=== PATIENT | male | born 1945 | race Caucasian/White ===

== ENCOUNTER 2022-05-08 06:38 | Inpatient (IN) ==
--- NOTE | 2022-04-24 11:18 | Anesthesiology Consultation ---
Date of Service April 24, 2022 Assessment & Plan (1) Encounter for pre-operative examination: - awaiting PCP pre-op evaluation, [facility] 04/25/22. Optimization note completed regarding Cr increase to 1.8. - s/p cervical spine fusion 2012 - COVID screening: Per injury/safety hazard assessment on 04/24/2022: Travel screen negative, no known COVID-19 positive contacts or current COVID-19 related symptoms in past 2 weeks. To surgeon's discretion if preop COVID testing is needed. Chart Review Chart Review: Pending: Refer to Additional Notes / Consult section and Patient NOT seen in Pre Admission Testing History Surgery Operation Date: 04/30/22 10:25 Proposed Procedures p L3-L4, L4-L5 Decompression and Fusion, Spinal Cord Monitroing - Philippe Ramirez DO Height/Weight Height: 5 ft 11 in Weight: 81.647 kg Allergies Allergy/AdvReac Type Severity Reaction Status Date / Time iodine Allergy Unknown unknown, Verified 04/24/22 11:16 listed in [facility] records shrimp AdvReac Unknown VOMIT, Verified 04/24/22 10:21 DIARRHEA Medications Home Medications Medication Instructions Recorded Confirmed Last Taken Bee Caps 1 cap PO QAM 04/24/22 04/24/22 Unknown Natures Cure Joint Renew 1 tab PO Q2D 04/24/22 04/24/22 Unknown amlodipine 5 mg tablet 5 mg PO QAM 04/24/22 04/24/22 Unknown multivitamin 1 cap PO QAM 04/24/22 04/24/22 Unknown Past Medical History Medical History (Updated 04/24/22 @ 11:17 by Riya Rizvi PA-C) History of colon polyps 10 YR AGO/CLEAR SINCE History of DVT (deep vein thrombosis) History of pulmonary embolism 2014 - UNKNOWN ETIOLOGY/NO RE-OCCURENCE [place] (hard of hearing) HTN (hypertension) Kidney disease FOLLOWS DR PAULINE VENTURA, stage 3a, Cr remaining around 1.7 per records Spinal stenosis Past Family History Family History Father Family history of diverticulitis of colon Other Family history of prostate cancer in father Past Surgical History Surgical History History of carpal tunnel surgery of left wrist History of colonoscopy History of fusion of cervical spine 2013 - FULL ROM Social History Smoking Status: Never smoker Do You Dip or Chew Tobacco: No Hx Alcohol Use: Yes (SOCIAL) Alcohol type: wine and hard liquor alcohol intake frequency: other Alcohol Intake Frequency Comment: SOCIAL DRINK 1 OR 2 X PER WEEK OR MONTH Hx Substance Use: No substance use type: does not use Lab Results Anesthesia Preop Results Results Anesthesia Widget: WBC 5.96 K/ul (4.8-10.8) 04/22/22 Hgb 14.5 g/dl (14.0-18.0) 04/22/22 Hct 43.4 % (40.1-51.0) 04/22/22 Plt 239 K/uL (130-400) 04/22/22 Na 141 mmol/L (136-145) 04/22/22 K 4.6 mmol/L (3.5-5.1) 04/22/22 Cl 109 mmol/L (98-107) H 04/22/22 CO2 26 mmol/L (21-32) 04/22/22 BUN 28 mg/dl (6-23) H 04/22/22 Creat 1.85 mg/dl (0.6-1.4) H 04/22/22 Glucose Level 95 mg/dl (70-99(Fasting)) 04/22/22 PT 11.6 Seconds (9.0-12.0) 04/22/22 PTT 30.1 Seconds (21.0-31.0) 04/22/22 INR 1.1 (0.9-1.1) 04/22/22 Urine Color Yellow 04/22/22 Urine Appearance Clear (Clear) 04/22/22 Urine pH 5.5 (4.5-7.5) 04/22/22 Urine Specific [place] 1.020 (1.000-1.030) 04/22/22 Urine Protein Negative (Negative) 04/22/22 Urine Glucose (UA) Negative (Negative) 04/22/22 Urine Ketones Negative (Negative) 04/22/22 Urine Blood Negative (Negative) 04/22/22 Urine Nitrite Negative (Negative) 04/22/22 Urine Bilirubin Negative (Negative) 04/22/22 Urine Urobilinogen Negative (Negative) 04/22/22 Urine Leukocyte Esterase Negative (Negative) 04/22/22 Blood Type A Positive 04/22/22 Antibody Screen NEGATIVE 04/22/22 Testing Electrocardiogram Date: 04/22/22 NSR, rate 79 bpm Chest X-Ray Date: 04/22/22 No pneumothorax. No pleural effusions. The lungs are clear. Heart is normal in size. Cervical spinal fusion hardware is noted. The lungs are mildly hyperexpanded. IMPRESSION: No acute process.
[~2022-05-08 06:38] MED LIST: ACETAMINOPHEN 500 MG TAB PO SCH; GABAPENTIN 300 MG CAP PO SCH; LR 15ML/HR IV SCH; ceFAZolin 2000MG 2,000 MG/15 ML SYR IV SCH
[2022-05-08] MEDS ORDERED: SUGAMMADEX SODIUM 200 MG/2 ML VIAL IV ONE (07:34)
--- NOTE | 2022-05-08 07:51 | History & Physical Bridge Note ---
Date of Service May 08, 2022 History & Physical Bridge Note I have examined the patient, reviewed the History & Physical and in the interval since the performance of the History & Physical I have noted the following changes of clinical significance: no changes noted
--- NOTE | 2022-05-08 07:52 | History & Physical Report ---
Date of Service May 08, 2022 Assessment & Plan (1) Spinal stenosis: Plan: L3-L4, L4-5 decompression and fusion History of Present Illness Chief Complaint: Back and leg pain Primary Care Provider: Tab Machado MD This is a 68-year-old male presents with chronic persistent back and leg pain. Failed extensive course of nonoperative care is here for surgical invention. Allergies Allergy/AdvReac Type Severity Reaction Status Date / Time iodine Allergy Unknown unknown, Verified 05/08/22 07:00 listed in [facility] records shrimp AdvReac Unknown VOMIT, Verified 05/08/22 07:00 DIARRHEA Home Medications Medication Instructions Recorded Confirmed Type Bee Caps 1 cap PO QAM 04/24/22 05/08/22 History Natures Cure Joint Renew 1 tab PO Q2D 04/24/22 05/08/22 History amlodipine 5 mg tablet 5 mg PO QAM 04/24/22 05/08/22 History multivitamin 1 cap PO QAM 04/24/22 05/08/22 History Past Med/Surg History Medical History History of colon polyps 10 YR AGO/CLEAR SINCE History of DVT (deep vein thrombosis) History of pulmonary embolism 2014 - UNKNOWN ETIOLOGY/NO RE-OCCURENCE [place] (hard of hearing) HTN (hypertension) Kidney disease FOLLOWS DR PAULINE VENTURA, stage 3a, Cr remaining around 1.7 per records Spinal stenosis Surgical History History of carpal tunnel surgery of left wrist History of colonoscopy History of fusion of cervical spine 2012 - FULL ROM Family History Father Family history of diverticulitis of colon Other Family history of prostate cancer in father Social History Smoking Status: Never smoker Do You Dip or Chew Tobacco: No; Hx Alcohol Use: Yes (SOCIAL) Alcohol type: wine and hard liquor Hx Substance Use: No Preferred Language: Vietnamese Communication Ability: Effective Communication Ability Comment: PT [place], HELPS WITH PHONE 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
[2022-05-08] MEDS ORDERED: BUPIVACAINE/EPINEPHRINE 0.25% 1:200,000 30 ML VIAL ONE (07:53)
[2022-05-08] MEDS ORDERED: ceFAZolin 330 MG/ML 1 GM VIAL ONE (07:53)
[2022-05-08] MEDS ORDERED: HYDROmorphone INJ 2 MG/ML SYR/VIAL ONE (07:56)
[2022-05-08] MEDS ORDERED: MIDAZOLAM HCL 1 MG/ML 2ML VIAL ONE (07:56)
[2022-05-08] MEDS ORDERED: LIDOCAINE 2% MPF LOCAL 5 ML VIAL INFIL ONE (07:57)
[2022-05-08] MEDS ORDERED: DEXAMETHASONE SOD INJ 4 MG/ML VIAL ONE (07:57)
[2022-05-08] MEDS ORDERED: ROCURONIUM BROMIDE 10 MG/ML 5 ML VIAL IV ONE ×4 (07:57→10:21)
[2022-05-08] MEDS ORDERED: ONDANSETRON INJ 2 MG/ML 2 ML VIAL ONE (07:57)
[2022-05-08] MEDS ORDERED: PROPOFOL IV EMULSION 10 MG/ML 20 ML VIAL IV ONE (07:57)
[2022-05-08] MEDS ORDERED: GLYCOPYRROLATE 0.2 MG/ML VIAL ONE (07:57)
[2022-05-08] MEDS ORDERED: SODIUM CHLORIDE 0.9% INJ 10 ML VIAL ONE (07:57)
[2022-05-08] MEDS ORDERED: HYDROmorphone INJ 2 MG/ML SYR/VIAL IV PRN (08:23)
[2022-05-08] MEDS ORDERED: ONDANSETRON INJ 2 MG/ML 2 ML VIAL IV PRN ×2 (08:23→12:36)
[2022-05-08] MEDS ORDERED: ePHEDrine sulfate 50 MG/ML AMP IV PRN (08:23)
[2022-05-08] MEDS ORDERED: ATROPINE SULFATE 0.1 MG/ML 10ML SYR IV PRN (08:23)
[2022-05-08] MEDS ORDERED: fentaNYL citrate 100 MCG/2 ML VIAL IV PRN (08:23)
[2022-05-08] MEDS ORDERED: PROMETHAZINE HCL 6.25 MG in SODIUM CHLORIDE 0.9% 50 ML IV PRN (08:23)
[2022-05-08] MEDS ORDERED: PHENYLEPHRINE 100MCG/ML 5ML SYR ONE (08:37)
[2022-05-08] MEDS ORDERED: PHENYLEPHRINE HCL 10 MG/ML VIAL ONE (10:18)
[2022-05-08] MEDS ORDERED: FLOSEAL HEMOSTATIC MATRIX 10ML TOP ONE (11:00)
--- NOTE | 2022-05-08 11:11 | Operative Report ---
Post Operative Report Pre & Post Diagnosis Operation Date: 04/30/22 09:05 <No data on this case meets the specified criteria> Operation Date: 05/08/22 08:15 Pre-Op Diagnosis: Spinal Stenosis, Lumbar Region with Neurogenic Claudication Post-Op Diagnosis: Spinal Stenosis, Lumbar Region with Neurogenic Claudication I identified the patient and participated in the time-out.: Yes Procedure Operation Date: 04/30/22 09:05 <No data on this case meets the specified criteria> Operation Date: 05/08/22 08:15 Actual Procedures #1 lumbar decompression bilateral medial facetectomies and foraminotomies L2-L3, L3-L4 and L4-5. #2 posterior spinal fusion L3-L4 L4-5. #3 placement posterior instrumentation L3-L5. #4 interbody fusion L3-L4 L4-5. #5 placement of Spira 13 x 26 mm at L3-L4 and 15 x 26 mm at L4-L5. #6 placement locally harvested morselized autograft in the posterior gutters. #7 placement of I factor model V toss interbody space and posterior gutters. Surgeon Philippe Ramirez, DO Reimbursement Rep Alayna Wong Estimated Blood Loss 400 Findings Consistent with Post-Op Diagnosis Specimens None Indications This is a 76-year-old male presents with bulge diagnosis after failed course of nonoperative care is here for the above-mentioned procedure. Description of Procedure Patient was met with identified informed consent obtained. Patient was then taken to the operative suite underwent a patient placed in a prone position the [place] table top Nadir frame. All bony prominences well-padded eyes inspected to ensure no external pressure placed upon them. This point the lumbar spine was prepped and draped in a sterile fashion. Sharp dissection with the assistance of Bovie cautery was performed down to and exposing the lamina and transverse processes of L3-L4-L5. From caudal to cephalad fashion complete laminectomy of L4 L3 impression laminectomy of L2 was performed including bilateral medial facetectomies and foraminotomies addressing severe spinal stenosis. Pedicle screws were then placed in L3-L4-L5 bilaterally with assistance of fluoroscopy and the properly sized nish placed. By way of a transfemoral approach and right complete discectomy of L4-5 was performed endplates curetted to subcortical bleeding bone and a 15 x 26 mm spiral cage with I factor tapped in position. Then proceeded to L3-L4 and again by way of a transforaminal portion right complete discectomy performed endplates curetted to subcortically bone and a 13 x 26 mm spiral cage with I factor tapped in position. The rods were then compressed locked into final position bilaterally. The transverse processes of L3 L4-5 burred to subcortical bleeding bone. I factor model of the test and locally harvested morselized autograft was placed in the posterior gutters. 15 round DELORIS drain inserted. The incision was then closed with 1 Vicryl the fascia 2-0 Vicryl subcutaneously and 4 Monocryl for final skin closure. Steri-Strip sterile dressing placed. Patient waken taken to PACU in stable condition. Please note spinal cord monitoring was utilized at the procedure no changes noted. Lastly Alayna Wong was present at the entire surgery and while the patient positioning complex portions of the surgery and final skin closure. I attest to the content of the Intraoperative Record and any orders documented therein. Any exceptions are noted below.
[2022-05-08] MEDS ORDERED: METOCLOPRAMIDE HCL INJ 5 MG/ML 2 ML VIAL IV PRN (12:36)
[2022-05-08] MEDS ORDERED: traMADol HCL 50 MG TABLET PO PRN (12:36)
[2022-05-08] MEDS ORDERED: diphenhydrAMINE Capsule 25 MG CAP PO PRN (12:36)
[2022-05-08] MEDS ORDERED: ONDANSETRON 4 MG OD TAB PO PRN (12:36)
[2022-05-08] MEDS ORDERED: LORazepam 0.5 MG in SYRINGE 0 ML IV PRN (12:36)
[2022-05-08] MEDS ORDERED: NALOXONE HCL 0.4 MG/1 ML VIAL/CARP IV PRN (12:36)
[2022-05-08] MEDS ORDERED: FAMOTIDINE 20 MG TAB PO PRN (12:36)
[2022-05-08] MEDS ORDERED: ALUMINUM/MAGNESIUM SUSP 30 ML UDC PO PRN (12:36)
[2022-05-08] MEDS ORDERED: PROMETHAZINE HCL 12.5 MG in SODIUM CHLORIDE 0.9% 50 ML IV PRN (12:36)
[2022-05-08] MEDS ORDERED: LORazepam 0.5 MG TAB PO PRN (12:36)
[2022-05-08] MEDS ORDERED: SOD PHOSPHATE/SOD BIPHOSPHATE ENEMA 132 ML BTL PR PRN (12:36)
[2022-05-08] MEDS ORDERED: ACETAMINOPHEN 1,000 MG/100 ML VIAL IV PRN (12:36)
[2022-05-08] MEDS ORDERED: MAGNESIUM HYDROXIDE SUSP 30 ML UDC PO PRN (12:36)
[2022-05-08] MEDS ORDERED: bisacodyL 10 MG SUPP PR PRN (12:36)
[2022-05-08] MEDS ORDERED: HYDROmorphone INJ 0.5 MG/0.5 ML SYR IV PRN (12:36)
[2022-05-08] MEDS ORDERED: hydrOXYzine HCl 25 MG TAB PO PRN (12:36)
[2022-05-08] MEDS ORDERED: HYDROmorphone INJ 1 MG/ML SYRINGE IV PRN (12:36)
[2022-05-08] MEDS ORDERED: oxyCODONE HCL IR 5 MG TAB (IMMEDIATE RELEASE) PO PRN (12:36)
[2022-05-08] MEDS ORDERED: DO NOT ADMINISTER PNEUMOCOCCAL VACCINE PRN (12:36)
[2022-05-08] MEDS ORDERED: DO NOT ADMINISTER FLU VACCINE PRN (12:36)
--- NOTE | 2022-05-08 14:31 | Hospitalist Consultation ---
Date of Consultation May 08, 2022 Assessment & Plan (1) S/P spinal surgery: This is a 76-year-old male with PMH of hypertension, CKD 3, degenerative disc disease of lumbar spine, history of pulmonary embolism who is POD #0 s/p lumbar decompression bilateral medial facetectomies and foraminotomies L2-L3, L3-L4 and L4-5 and posterior spinal fusion L3-L4 L4-[address] Ramirez. S/p lumbar decompression bilateral medial facetectomies and foraminotomies L2- L3, L3-L4 and L4-5 and posterior spinal fusion L3-L4 L4-[address] Ramirez on 05/08/22 Per ortho for pain control, wound care, anticoagulation and activities Monitor H&H (pre-op hgb 14.5, EBL 400ml) Continue incentive spirometry, PT/OT when appropriate (2) CKD (chronic kidney disease), stage III: Baseline Cr ~1.7. Avoid nephrotoxic agents when possible including Toradol. Repeat BMP in AM (3) Hypertension: Normotensive, continue amlodipine (4) History of pulmonary embolism: H/o PE in 2014, completed anticoagulation after 1 year. No recurrent issues since PCP: [place] Dispo: Per orthopedic service Patient seen in collaboration with Dr. Garcia. Please see addendum. Thank you for this consultation. We will follow the patient with you during their hospital stay. You can reach a member of the [facility] Hospitalist Team 29/12 via [employer]. Supervising Physician Co-Signing Physician Notes Care coordinated with Ruthy Vo PA-C. Agree with above note. Patient seen and examined. Please refer to her notes for full details. Vital signs reviewed. Physical exam: General exam: Alert and oriented. Not in acute distress. CVS: S1 and S2 heard, regular rate and rhythm, no murmurs. RS: Clear to auscultation, no wheezing or crackles. ABD: Soft, bowel sounds present, nontender, no distention. 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 Musculoskeletal s/p back surgery Dressing and drain intact EXT: No edema, no erythema. Labs: Reviewed. Assessment and plan: 76M s/p back surgery . Tolerated procedure fine. Resting comfortably. Has some discomfort at surgery site. No chest pain or sob. No anusea or feeling hot or cold. No blurry vision. S/P BAck surgery management as per ortho. HTN on amlodipine will monitor Other diagnosis and plan of care as per Ruthy Vo PA-C. Campos hoff MD. History of Present Illness Reason for Consultation: post op med mgmt Attending Physician: Philippe Ramirez DO History of Present Illness This is a 76-year-old male with PMH of hypertension, CKD 3, degenerative disc disease of lumbar spine, history of pulmonary embolism who is POD #0 s/p lumbar decompression bilateral medial facetectomies and foraminotomies L2-L3, L3-L4 and L4-5 and posterior spinal fusion L3-L4 L4-[address] Ramirez. Feeling well postoperatively. Has some surgical site discomfort but denies jyoti pain. No pain or paresthesias in bilateral lower extremities. No fever, chills, chest pain, shortness of breath, nausea, vomiting, abdominal pain, dysuria, diarrhea or constipation. Follows with Dr. Machado for primary care. Taking amlodipine for history of hypertension and follows with Dr. Graff of nephrology for CKD 3. Remote history of pulmonary embolism in 2014 but was taken off of anticoagulation in 2015 and has no further issues since then. Allergies Allergy/AdvReac Type Severity Reaction Status Date / Time iodine Allergy Unknown unknown, Verified 05/08/22 07:00 listed in [facility] records shrimp AdvReac Unknown VOMIT, Verified 05/08/22 07:00 DIARRHEA Home Medications Medication Instructions Recorded Confirmed Type Bee Caps 1 cap PO QAM 04/24/22 05/08/22 History Natures Cure Joint Renew 1 tab PO Q2D 04/24/22 05/08/22 History amlodipine 5 mg tablet 5 mg PO QAM 04/24/22 05/08/22 History multivitamin 1 cap PO QAM 04/24/22 05/08/22 History Patient History Medical History (Updated 05/08/22 @ 14:25 by Ruthy Vo PA-C) History of adenomatous polyp of colon "tubular adenoma 2008" History of colon polyps 10 YR AGO/CLEAR SINCE History of DVT (deep vein thrombosis) History of pulmonary embolism 2014 - UNKNOWN ETIOLOGY/NO RE-OCCURENCE History of pulmonary embolism [place] (hard of hearing) HTN (hypertension) Kidney disease FOLLOWS DR PAULINE GRAFF, stage 3a, Cr remaining around 1.7 per records Spinal stenosis Surgical History (Updated 05/08/22 @ 14:25 by Ruthy Vo PA-C) History of carpal tunnel surgery of left wrist History of colonoscopy History of fusion of cervical spine 2013 - FULL ROM Family History Father Family history of diverticulitis of colon Other Family history of prostate cancer in father Social History (Updated 05/08/22 @ 14:24 by Ruthy Vo PA-C) Smoking Status: Former smoker Smoking End Date: 1998; Do You Dip or Chew Tobacco: No; Hx Alcohol Use: Yes (SOCIAL) Alcohol type: wine and hard liquor Hx Substance Use: No Preferred Language: Malay Communication Ability: Effective Communication Ability Comment: PT [place], HELPS WITH PHONE INTERVIEW Facilities Technician Required: No Beliefs That Will Affect Care: None Current Living Situation: Spouse Other Information That Helps Us Care for You: No Feels Safe at Home: Yes Assistive Devices: Denture - Upper, Denture - Lower, Glasses and Hearing Aid - Bilateral Review of Systems Review of Systems: At least ten systems reviewed and negative except as noted in the HPI. Physical Exam Physical Exam: Gen: WD/WN, NAD, lying in bed, A&Ox3 HEENT: Normocephalic, atraumatic, conjunctivae moist, sclerae anicteric, mucous membranes moist Lung: Clear to Auscultation bilaterally, no wheezes/rales/rhonchi Heart: Regular rate, regular rhythm, no murmurs, rubs, or gallops Abdomen: Soft, NT, ND +BS x 4 Extremities: +Spinal dressing c/d/i. DELORIS drain visualized. Strength intact BLE. No edema Skin: Warm, no rash Results & Data Results & Data ([facility]) Vital Signs (Past 12 Hours) Vital Signs Temp Pulse Pulse Resp BP Pulse Ox O2 Del Method 05/08/22 14:00 36.5 C 76 16 133/75 96 Room Air 05/08/22 13:15 88 16 118/70 96 Room Air 05/08/22 12:50 36.5 C 80 12 122/76 97 Room Air 05/08/22 12:35 88 12 130/79 97 Room Air 05/08/22 12:20 81 12 135/84 96 Room Air 05/08/22 12:10 81 20 132/81 98 Room Air 05/08/22 12:00 76 12 123/58 L 96 Room Air 05/08/22 11:50 84 12 128/76 98 Room Air 05/08/22 11:40 78 20 115/75 99 Oxymask 05/08/22 11:30 76 16 114/64 99 Oxymask 05/08/22 11:24 36.5 C 80 12 111/67 99 Oxymask 05/08/22 07:02 36.6 C 77 18 160/86 H 97 Room Air O2 Flow Rate 05/08/22 14:00 05/08/22 13:15 05/08/22 12:50 05/08/22 12:35 05/08/22 12:20 05/08/22 12:10 05/08/22 12:00 05/08/22 11:50 05/08/22 11:40 3 05/08/22 11:30 6 05/08/22 11:24 6 05/08/22 07:02
--- NOTE | 2022-05-08 14:38 | Fluoroscopy Report ---
FL lumbar spine 2-3V CLINICAL HISTORY: L3-L4,L4-L5 DECOMP/FUSION COMPARISON STUDY: CT of the abdomen and pelvis October 14, 2014. FLUOROSCOPY TIME: 25 seconds. FLUOROSCOPIC IMAGES: 2 FINDINGS: Fluoroscopy was provided during L3-L4 and L4-L5 discectomies with interbody spacer placemen t. Posterior decompression is noted with bilateral pedicle screws at the L3, L4 and L5 levels. There are interconnecting rods. Surgeon was aware of the linear radiodensities within the operative bed. IMPRESSION: Fluoroscopy provided during L3-L5 discectomies, posterior decompression and bilateral pe dicle screw fusion. ACT 112: Negative or not required by law. Electronically signed by: Jaron Rivera M.D. 05/08/2022 2:37 PM
--- NOTE | 2022-05-08 15:08 | Anesthesiology Progress Note ---
Date of Service May 08, 2022 Anesthesia Post Procedure Vital Signs Vital Signs: Temp Pulse Pulse Resp BP Pulse Ox O2 Del Method 05/08/22 14:29 36.6 C 74 16 119/73 98 Room Air 05/08/22 14:00 36.5 C 76 16 133/75 96 Room Air 05/08/22 13:15 88 16 118/70 96 Room Air 05/08/22 12:50 36.5 C 80 12 122/76 97 Room Air 05/08/22 12:35 88 12 130/79 97 Room Air 05/08/22 12:20 81 12 135/84 96 Room Air 05/08/22 12:10 81 20 132/81 98 Room Air 05/08/22 12:00 76 12 123/58 L 96 Room Air 05/08/22 11:50 84 12 128/76 98 Room Air 05/08/22 11:40 78 20 115/75 99 Oxymask 05/08/22 11:30 76 16 114/64 99 Oxymask 05/08/22 11:24 36.5 C 80 12 111/67 99 Oxymask 05/08/22 07:02 36.6 C 77 18 160/86 H 97 Room Air O2 Flow Rate 05/08/22 14:29 05/08/22 14:00 05/08/22 13:15 05/08/22 12:50 05/08/22 12:35 05/08/22 12:20 05/08/22 12:10 05/08/22 12:00 05/08/22 11:50 05/08/22 11:40 3 05/08/22 11:30 6 05/08/22 11:24 6 05/08/22 07:02 Pain Intensity Right Back: Pain Intensity: 0 Transfer of Care Handoff Completed per policy Notes Mental Status: alert / awake / arousable Patient Amnestic to Procedure: Yes Nausea / Vomiting: adequately controlled Pain: adequately controlled Airway Patency, RR, SpO2: stable & adequate BP & HR: stable & adequate Hydration State: stable & adequate Anesthetic Complications: no major complications apparent
[2022-05-08] MEDS: ACETAMINOPHEN 500 MG TAB PO PRN (15:57)
[2022-05-08] MEDS: ceFAZolin 2000MG 2,000 MG/15 ML SYR IV SCH (19:11)
[2022-05-08] MEDS: LACTATED RINGER'S 1,000 ML IV SCH ×2 (19:15→21:20)
[2022-05-08] MEDS: DOCUSATE SODIUM/SENNA 50/8.6MG TAB PO SCH (21:22)
[2022-05-09] MEDS: ceFAZolin 2000MG 2,000 MG/15 ML SYR IV SCH (01:21)
[2022-05-09] MEDS: ACETAMINOPHEN 500 MG TAB PO PRN ×2 (01:24→08:14)
[2022-05-09] MEDS ORDERED: POLYETHYLENE (MIRALAX) 17 GM PACK ONE (04:32)
[2022-05-09] MEDS: POLYETHYLENE (MIRALAX) 17 GM PACK PO SCH ×2 (04:34→18:36)
[2022-05-09 07:04] LABS: Basophils # (auto) 0.02 K/uL (0-0.2); Basophils % (auto) 0.2 %; Eosinophils # (auto) 0.01 K/uL (0-0.50); Eosinophils % (auto) 0.1 %; Hematocrit (blood only) 33.7 % (40.1-51.0); Hemoglobin 11.7 g/dl (14.0-18.0); Immature Granulocytes # (auto) 0.16 K/uL (0.00-0.02); Immature Granulocytes % (auto) 1.3 %; Lymphocytes # (auto) 1.75 K/uL (1.2-3.4); Mean Corpuscular Hemoglobin 30.5 pg (25.0-34.0); Mean Corpuscular Hgb Conc 34.7 g/dL (32.0-36.0); Mean Platelet Volume 9.8 fL (9.4-12.4); Monocytes # (auto) 1.18 K/uL (0.24-0.82); Monocytes % (auto) 9.4 %; Neutrophils # (auto) 9.38 K/uL (1.4-6.5); Platelet Count 183 K/uL (130-400); RDW Coefficient of Variation 12.2 % (11.5-14.5); Red Blood Count 3.83 M/uL (4.63-6.08)
[2022-05-09 07:22] LABS: Calcium 8.6 mg/dl (8.5-10.1); Creatinine Clr Calc Pharmacy 37.1 ml/min; Est GFR (African American) 42.3 ml/min; Est GFR (Non-African American) 36.5 ml/min; Potassium 4.4 mmol/L (3.5-5.1)
[2022-05-09] MEDS: dexAMETHasone 6 MG in SYRINGE 0 ML IV SCH (08:10)
[2022-05-09] MEDS: amLODIPine BESYLATE 5 MG TAB PO SCH (08:12)
[2022-05-09] MEDS: MULTIVITAMIN TAB PO SCH (08:12)
--- NOTE | 2022-05-09 11:13 | Orthopedic Progress Note ---
Date of Service May 09, 2022 Assessment & Plan (1) Spinal stenosis: Plan: At this time we will continue physical therapy and monitor his DELORIS output hopefully discharge home in the next few days. Admission and Anticipated Discharge Date Admission Date: May 08, 2022 Subjective Back pain is controlled leg symptoms markedly improved Physical Exam Physical Exam: Patient is comfortable was constricted testing. I Results & Data ([facility]) Vital Signs (Past 12 Hours) Vital Signs Temp Pulse Pulse Resp BP BP Pulse Ox 05/09/22 07:19 36.9 C 83 16 117/71 97 05/09/22 04:29 37.0 C 71 18 144/78 H 96 O2 Del Method 05/09/22 07:19 Room Air 05/09/22 04:29 Room Air
--- NOTE | 2022-05-09 11:48 | Hospitalist Progress Note ---
Date of Service May 09, 2022 Assessment & Plan (1) S/P spinal surgery: Plan: This is a 76-year-old male with PMH of hypertension, CKD 3, degenerative disc disease of lumbar spine, history of pulmonary embolism who is POD #1 s/p lumbar decompression bilateral medial facetectomies and foraminotomies L2-L3, L3-L4 and L4-5 and posterior spinal fusion L3-L4 L4-[address] Ramirez. S/p lumbar decompression bilateral medial facetectomies and foraminotomies L2- L3, L3-L4 and L4-5 and posterior spinal fusion L3-L4 L4-[address] Ramirez on 05/08/22 Per ortho for pain control, wound care, anticoagulation and activities Continue incentive spirometry, PT/OT when appropriate Post op blood loss anemia H&H - hgb 11.7 today (pre-op hgb 14.5, EBL 400ml) Post op blood loss + likely dilutional factor. VSS, asymptomatic. Continue to monitor, consider transfusion if hgb <8 (2) CKD (chronic kidney disease), stage III: Plan: Cr 1.75 today at baseline (Cr ~1.7-1.8). Avoid nephrotoxic agents when possible including Toradol. Repeat BMP in AM (3) Hypertension: Plan: Normotensive, continue amlodipine (4) History of pulmonary embolism: Plan: H/o PE in 2014, completed anticoagulation after 1 year. No recurrent issues since PCP: Carter Dispo: Per orthopedic service Thank you for this consultation. We will follow the patient with you during their hospital stay. You can reach a member of the [facility] Hospitalist Team 29/12 via [employer]. Admission and Anticipated Discharge Date Admission Date: May 08, 2022 Supervising Physician Co-Signing Physician Notes Patient seen and evaluated at as a follow-up of medical management bedside for status post spinal surgery. Patient reports improvement in his right radicular symptoms, reports pain under control, reports eating okay, denies other review of symptoms. Acute blood loss anemia, likely postoperative, hemoglobin drop by around three- point. On examination, on room air, NAD, low back with clean dressing without soakage, DELORIS drain with minimal serosanguineous collection noted. Rest of the examination as above. I have seen and examined the patient and have discussed the case with the provider above. I agree with the assessment and plan as stated. Subjective Seen and examined in 303-1. Feeling well today and ambulating in the halls without issue. Some surgical discomfort with transitioning from lying to sitting but otherwise denies pain. Tolerating diet without issue. No nausea or vomiting. No fever, chills, lightheadedness, headache, chest pain, shortness of breath. [place] catheter in place. Passing flatus, no bowel movement yet. Review of Systems Review of Systems: At least ten systems reviewed and negative except as noted in the HPI. Physical Exam Physical Exam: Gen: WD/WN, NAD, lying in bed, A&Ox3 HEENT: Normocephalic, atraumatic, conjunctivae moist, sclerae anicteric, mucous membranes moist Lung: Clear to Auscultation bilaterally, no wheezes/rales/rhonchi Heart: Regular rate, regular rhythm, no murmurs, rubs, or gallops Abdomen: Soft, NT, ND +BS x 4 Extremities: +Spinal dressing c/d/i. DELORIS drain visualized. Strength intact BLE. No edema Skin: Warm, no rash Results & Data Results & Data ([facility]) Vital Signs (Past 12 Hours) Vital Signs Temp Pulse Pulse Resp BP BP Pulse Ox 05/09/22 07:19 36.9 C 83 16 117/71 97 05/09/22 04:29 37.0 C 71 18 144/78 H 96 O2 Del Method 05/09/22 07:19 Room Air 05/09/22 04:29 Room Air Laboratory Results Short CBC 05/09/22 Range/Units 06:36 WBC 12.50 H (4.8-10.8) K/ul Hgb 11.7 L (14.0-18.0) g/dl Hct 33.7 L (40.1-51.0) % Plt Count 183 (130-400) K/uL BMP 05/09/22 06:36 Sodium 136 Potassium 4.4 Chloride 106 Carbon Dioxide 24 BUN 28 H Creatinine 1.75 H Glucose 116 H Calcium 8.6 Diagnostic Findings Lumbar Spine X-Ray 05/08/22 00:00 FL lumbar spine 2-3V CLINICAL HISTORY: L3-L4,L4-L5 DECOMP/FUSION COMPARISON STUDY: CT of the abdomen and pelvis October 14, 2014. FLUOROSCOPY TIME: 25 seconds. FLUOROSCOPIC IMAGES: 2 FINDINGS: Fluoroscopy was provided during L3-L4 and L4-L5 discectomies with interbody spacer placement. Posterior decompression is noted with bilateral pedicle screws at the L3, L4 and L5 levels. There are interconnecting rods. Surgeon was aware of the linear radiodensities within the operative bed. IMPRESSION: Fluoroscopy provided during L3-L5 discectomies, posterior decompression and bilateral pedicle screw fusion. ACT 112: Negative or not required by law. Electronically signed by: Jaron Rivera M.D. 05/08/2022 2:37 PM
[2022-05-09] MEDS: DOCUSATE SODIUM/SENNA 50/8.6MG TAB PO SCH (20:11)
[2022-05-10] MEDS: POLYETHYLENE (MIRALAX) 17 GM PACK PO SCH ×4 (00:22→18:08)
[2022-05-10 06:38] LABS: Hematocrit (blood only) 32.2 % (40.1-51.0); Mean Corpuscular Hemoglobin 29.9 pg (25.0-34.0); Mean Corpuscular Hgb Conc 34.2 g/dL (32.0-36.0); Mean Corpuscular Volume 87.5 fL (80.0-100.0); Mean Platelet Volume 9.9 fL (9.4-12.4); Platelet Count 193 K/uL (130-400); RDW Coefficient of Variation 12.3 % (11.5-14.5); RDW Standard Deviation 39.8 fL (36.4-46.3); Red Blood Count 3.68 M/uL (4.63-6.08); White Blood Count 12.26 K/ul (4.8-10.8)
[2022-05-10 07:28] LABS: BUN Creatinine Ratio 17.8 (10-20); Calcium 8.7 mg/dl (8.5-10.1); Creatinine Clr Calc Pharmacy 36.7 ml/min; Est GFR (African American) 42.3 ml/min; Est GFR (Non-African American) 36.5 ml/min; Potassium 4.3 mmol/L (3.5-5.1)
[2022-05-10] MEDS: MULTIVITAMIN TAB PO SCH (08:06)
[2022-05-10] MEDS: dexAMETHasone 6 MG in SYRINGE 0 ML IV SCH (08:06)
[2022-05-10] MEDS: amLODIPine BESYLATE 5 MG TAB PO SCH (08:06)
--- NOTE | 2022-05-10 10:33 | Orthopedic Progress Note ---
Date of Service May 10, 2022 Assessment & Plan (1) Spinal stenosis: Plan: At this time we will continue physical therapy monitor his progress anticipate discharge home tomorrow. Admission and Anticipated Discharge Date Admission Date: May 08, 2022 Subjective Back pain is controlled leg pain improved Physical Exam Physical Exam: Patient is constricted testing. Peers comfortable. Results & Data ([facility]) Vital Signs (Past 12 Hours) Vital Signs Temp Pulse Resp BP Pulse Ox O2 Del Method 05/10/22 07:36 36.9 C 76 18 136/81 94 Room Air
[2022-05-10] MEDS: ACETAMINOPHEN 500 MG TAB PO PRN ×2 (13:42→23:16)
--- NOTE | 2022-05-10 14:10 | Hospitalist Progress Note ---
Date of Service May 10, 2022 Assessment & Plan (1) S/P spinal surgery: Plan: This is a 76-year-old male with PMH of hypertension, CKD 3, degenerative disc disease of lumbar spine, history of pulmonary embolism who is POD #1 s/p lumbar decompression bilateral medial facetectomies and foraminotomies L2-L3, L3-L4 and L4-5 and posterior spinal fusion L3-L4 L4-[address] Ramirez. S/p lumbar decompression bilateral medial facetectomies and foraminotomies L2- L3, L3-L4 and L4-5 and posterior spinal fusion L3-L4 L4-[address] Ramirez on 05/08/22 Per ortho for pain control, wound care, anticoagulation and activities Continue incentive spirometry, PT/OT when appropriate Post op blood loss anemia H&H - hgb around 11 (pre-op hgb 14.5, EBL 400ml) Post op blood loss + likely dilutional factor. VSS, asymptomatic. Continue to monitor, consider transfusion if hgb <8 (2) CKD (chronic kidney disease), stage III: Plan: Cr 1.74 today at baseline (Cr ~1.7-1.8). Avoid nephrotoxic agents when possible including Toradol. Repeat BMP in AM (3) Hypertension: Plan: Normotensive, continue amlodipine (4) History of pulmonary embolism: Plan: H/o PE in 2014, completed anticoagulation after 1 year. No recurrent issues since PCP: Carter Dispo: Per orthopedic service Thank you for this consultation. We will follow the patient with you during their hospital stay. You can reach a member of the [facility] Hospitalist Team 29/12 via [employer] Admission and Anticipated Discharge Date Admission Date: May 08, 2022 Subjective Patient seen and examined at bedside as a follow-up of medical consult for status post lumbar spine surgery. Patient was sitting up in chair, on room air, NAD, reports eating okay and moving bowels okay, reports pain under control, denies other review of symptoms. Physical Exam Physical Exam: GENERAL: Alert and oriented x3. NAD, on RA. HEENT: No pallor, no icterus. Pupils equal, round and reactive to light. Oral mucosa moist. NECK: No JVD, no neck masses. HEART: S1 and S2 heard. Regular rate and rhythm. No murmur, no gallop. RESPIRATORY SYSTEM: Normal AP diameter. No accessory muscle use. No wheezing, no crackles. ABDOMEN: Soft, bowel sounds present, nontender, no distention. CENTRAL NERVOUS SYSTEM: No facial droop. Speech is clear. Obeys simple commands. Moves extremities. EXTREMITIES: No edema, no erythema seen. Low back with clean dressing Without soakage, DELORIS drain with moderate serosanguineous collection noted. Results & Data Results & Data ([facility]) Vital Signs (Past 12 Hours) Vital Signs Temp Pulse Resp BP Pulse Ox O2 Del Method 05/10/22 07:36 36.9 C 76 18 136/81 94 Room Air
[2022-05-10] MEDS: DOCUSATE SODIUM/SENNA 50/8.6MG TAB PO SCH (21:37)
[2022-05-11] MEDS: MULTIVITAMIN TAB PO SCH (08:29)
[2022-05-11] MEDS: dexAMETHasone 6 MG in SYRINGE 0 ML IV SCH (08:29)
[2022-05-11] MEDS: amLODIPine BESYLATE 5 MG TAB PO SCH (08:29)
[2022-05-11] MEDS: ACETAMINOPHEN 500 MG TAB PO PRN ×2 (08:35→20:20)
--- NOTE | 2022-05-11 09:30 | Orthopedic Progress Note ---
Date of Service May 11, 2022 Assessment & Plan (1) Spinal stenosis: Plan: We will continue physical therapy. Change his dressing DC drain today. He would like to discharge home tomorrow with home health. Admission and Anticipated Discharge Date Admission Date: May 08, 2022 Subjective Patient's pain is controlled leg symptoms improved. He is tolerating physical therapy. Physical Exam Physical Exam: Patient is comfortable. Is good strength testing. Results & Data ([facility]) Vital Signs (Past 12 Hours) Vital Signs Temp Pulse Resp BP Pulse Ox O2 Del Method 05/11/22 07:09 37.0 C 66 16 127/76 98 Room Air 05/10/22 22:49 37.1 C 75 18 136/86 97 Room Air
--- NOTE | 2022-05-11 13:49 | Hospitalist Progress Note ---
Date of Service May 11, 2022 Assessment & Plan (1) S/P spinal surgery: Plan: This is a 76-year-old male with PMH of hypertension, CKD 3, degenerative disc disease of lumbar spine, history of pulmonary embolism who is POD #1 s/p lumbar decompression bilateral medial facetectomies and foraminotomies L2-L3, L3-L4 and L4-5 and posterior spinal fusion L3-L4 L4-[address] Ramirez. S/p lumbar decompression bilateral medial facetectomies and foraminotomies L2- L3, L3-L4 and L4-5 and posterior spinal fusion L3-L4 L4-[address] Ramirez on 05/08/22 Per ortho for pain control, wound care, anticoagulation and activities Continue incentive spirometry, PT/OT when appropriate Post op blood loss anemia H&H - hgb around 11 (pre-op hgb 14.5, EBL 400ml) Post op blood loss + likely dilutional factor. VSS, asymptomatic. Pt w/o s/s of anemia. (2) CKD (chronic kidney disease), stage III: Plan: Cr at baseline (Cr ~1.7-1.8). Avoid nephrotoxic agents when possible including Toradol. (3) Hypertension: Plan: Normotensive, continue amlodipine (4) History of pulmonary embolism: Plan: H/o PE in 2014, completed anticoagulation after 1 year. No recurrent issues since PCP: Carter Dispo: Per orthopedic service Thank you for this consultation. We will follow the patient with you during their hospital stay. You can reach a member of the [facility] Hospitalist Team 29/12 via [employer]. Admission and Anticipated Discharge Date Admission Date: May 08, 2022 Subjective Patient seen and examined at bedside as a follow-up of medical consult for status post lumbar spine surgery. Patient was lying in bed, on room air, NAD, reports eating okay and moving bowels okay, reports pain under control, denies other review of symptoms. Physical Exam Physical Exam: GENERAL: Alert and oriented x3. NAD, on RA. HEENT: No pallor, no icterus. Pupils equal, round and reactive to light. Oral mucosa moist. NECK: No JVD, no neck masses. HEART: S1 and S2 heard. Regular rate and rhythm. No murmur, no gallop. RESPIRATORY SYSTEM: Normal AP diameter. No accessory muscle use. No wheezing, no crackles. ABDOMEN: Soft, bowel sounds present, nontender, no distention. CENTRAL NERVOUS SYSTEM: No facial droop. Speech is clear. Obeys simple commands. Moves extremities. EXTREMITIES: No edema, no erythema seen. Low back with clean dressing minimal soakage, DELORIS drain with moderate serosanguineous collection noted. Results & Data Results & Data ([facility]) Vital Signs (Past 12 Hours) Vital Signs Temp Pulse Resp BP Pulse Ox O2 Del Method 05/11/22 07:09 37.0 C 66 16 127/76 98 Room Air
[2022-05-11] MEDS: DOCUSATE SODIUM/SENNA 50/8.6MG TAB PO SCH (20:19)
[2022-05-12] MEDS: ACETAMINOPHEN 500 MG TAB PO PRN (08:02)
[2022-05-12] MEDS: amLODIPine BESYLATE 5 MG TAB PO SCH (08:05)
[2022-05-12] MEDS: MULTIVITAMIN TAB PO SCH (08:05)
--- NOTE | 2022-05-12 10:03 | Discharge Summary ---
Date of Service May 12, 2022 Admission HPI Per Admitting Provider This is a 68-year-old male presents with chronic persistent back and leg pain. Failed extensive course of nonoperative care is here for surgical invention. Principal Diagnosis Lumbar spinal stenosis with neurogenic claudication Discharge Data Allergies Allergy/AdvReac Type Severity Reaction Status Date / Time iodine Allergy Unknown unknown, Verified 05/08/22 07:00 listed in S records shrimp AdvReac Unknown VOMIT, Verified 05/08/22 07:00 DIARRHEA Consultations 05/08/22 12:36 Consult Hospitalist Routine Procedures Performed Operation Date: 04/30/22 09:05 <No data on this case meets the specified criteria> Operation Date: 05/08/22 08:15 Actual Procedures p L3-L4, L4-L5 Decompression and Fusion, Spinal Cord Monitoring(Not Applicable) - Philippe Ramirez DO Ordered Studies 05/08/22 FL lumbar spine 2-3V Routine Hospital Course (1) Spinal stenosis: Patient underwent lumbar decompression fusion tolerated this well was taken to orthopedic for postoperative. Postop day 1 is up and ambulating progressed to postop day #2 and 3 pain improving strength intact. Socially discharged home with home health on postop day #4. Discharge orders instructions from the chart for further review. Total Time Total Time Spent Total Time Spent (In Minutes): 20 minutes Discharge Plan Discharge Items Patient Disposition: Home - Home Health Services Reason For Visit: Spinal Stenosis, Lumbar Region with Neurogenic Cla Discharge Diagnosis: Lumbar spinal stenosis with neurogenic claudication Activity: As commented below Non-emergency contact: Primary Care Provider Call non-emergency contact if: you have any medication questions Follow-up/Referrals: Tab Machado MD [Primary Care Provider] - Diet: Regular Addtl Attending Provider Instructions: ACTIVITY RECOMMENDATIONS: SELF CARE INSTRUCTIONS AFTER THORACIC/LUMBAR FUSIONS 1. You may walk to your tolerance. It is good exercise for your legs and back. Expect some back and intermittent leg aches and pains. 2. You may perform "counter-top" level activities (make a sandwich, rossi with a project, etc.). 3. No bending or lifting of more than 10 pounds or back twisting of any nature (roll like a log when turning in bed). 4. You may ride in a car for 20-30 minutes at a time. No driving until after your first visit with your doctor. 5. Frequent changes of position and restricting sitting to 30 minutes at a time will help limit the amount of back spasms and stiffness you may experience. 6. You may discontinue the use of ambulatory aids (cane, crutches, etc.) once your strength and confidence allow. 7. You may interactive graphic designer the shower and let water strike your incision when you arrive home at least once daily. Do not take a tub bath, sit in a hot tub or go into a swimming pool until after your first recheck in the office. SPECIAL CARE INSTRUCTIONS: VERY IMPORTANT TO READ AND REVIEW A. Your surgical incision has been closed with a cosmetic suture under the skin that will dissolve in about 6 weeks. In 14 days, you can use a pair of clean scissors and cut the suture that is left outside of the skin at the ends of your incision. 1. The small skin tapes can be removed 7 days after surgery if they have not fallen off by that point. 2. You may keep the wound open to air as much as possible to promote healing after post-op day number 5 unless told otherwise by your doctor. 3. If you think the wound looks like it is becoming infected (redness or worsening drainage) and/or you are experiencing fever, chill or worsening back pain and muscle spasms, contact the office so that we may evaluate you as soon as possible. B. Complications are uncommon, but please contact us if you have any signs or symptoms of: 1. wound infection (fever higher than 102.5 degrees F, redness, separation of wound, drainage, or increasing pain from the incision) 2. blood clots in legs (pain, swelling, redness and warmth in legs) 3. urinary tract infection (fever higher than 102.5 degrees F, burning upon urination or increased frequency of urination) 4. nerve problems (inability to walk on your toes or heels, numbness, loss of bowel or bladder control) 5. any other symptoms that concern you C. Please call the office at if you have any concerns or questions about your operation or recovery. D. No smoking! Smoking drastically decreases the chance of a solid fusion. E. Do not take any anti-inflammatory medications (Indocin, Advil, Motrin, Aspirin, Naprosyn, etc.) as these may inhibit the chance of a solid fusion. Tylenol is okay to take for pain. MANAGING PAIN AFTER SPINAL SURGERY 1. Narcotic medication is intended for short-term use and will be provided for surgical pain. Surgical pain usually lasts for a period of 4-6 weeks. Narcotic medication includes Percocet, Vicodin, Darvocet, Tylenol #3 or Lortab. 2. Longer-term pain is more appropriately treated with non-narcotic medication such as Tylenol ES. 3. Muscle spasm is not appropriately treated with narcotics. Muscle relaxers such as Soma, Flexeril or Skelaxin can be used along with Tylenol ES. 4. Remember that we all live with some "aches and pains". This is not unusual or uncommon after an injury or as we get older. a. Back pain is expected and may include muscle spasms for 4 to 6 weeks after surgery. The pain should gradually improve. If the pain worsens for no apparent reason, please contact the office. b. Intermittent leg pain may also be experienced and should not be concerned about unless it worsens for no apparent reason. If so, please contact the office. 5. We will provide appropriate medication within the normal guidelines of their prescribed use. We will also be very cautious and aware of potential abuse and extended duration of patients' medication needs. a. Pain medications are for your comfort and to assist with sleep and rest so that the tissue can heal. They are not provided in order to return to normal activity and should not be used through the day. To do so or worsening pain at night can result from ongoing tissue damage and development of tolerance to the prescribed medicine. 6. Please allow 2-3 days to process refills. Prescriptions will not be mailed but must be picked up at the office. FOLLOW UP VISIT: Keep your scheduled follow-up appointment. Any questions, please call the office at . Pending Studies at Discharge: No Stand-Alone Forms: My bepretty, Smoking Cessation Medications and DC Order Prescriptions: New tramadol 50 mg tablet 50 mg PO Q6H PRN (Reason: pain, moderate) Qty: 30 0RF oxycodone 5 mg tablet 5 mg PO Q6H PRN (Reason: pain, severe) Qty: 30 0RF Continued amlodipine 5 mg Tablet 5 mg PO QAM multivitamin Capsule 1 cap PO QAM Bee Caps 1 cap PO QAM Natures Cure Joint Renew 1 tab PO Q2D Label Comments: MORNING Discharge Orders: Discharge Order (Routine); Ordered 05/12/22 Ordered By: Philippe Ramirez Admission Data Admit Date/Time: 05/08/22 11:14 Attending Provider: Philippe Ramirez Admit Provider: Philippe Ramirez Primary Care Provider: Tab Machado Other Providers: Gina Jiménez ; Esequiel Bobby ; Ruthy Vo ; [facility]
--- NOTE | 2022-05-12 12:18 | Hospitalist Progress Note ---
Date of Service May 12, 2022 Assessment & Plan (1) S/P spinal surgery: Plan: This is a 76-year-old male with PMH of hypertension, CKD 3, degenerative disc disease of lumbar spine, history of pulmonary embolism who is POD #1 s/p lumbar decompression bilateral medial facetectomies and foraminotomies L2-L3, L3-L4 and L4-5 and posterior spinal fusion L3-L4 L4-[address] Ramirez. S/p lumbar decompression bilateral medial facetectomies and foraminotomies L2- L3, L3-L4 and L4-5 and posterior spinal fusion L3-L4 L4-[address] Ramirez on 05/08/22 Per ortho for pain control, wound care, anticoagulation and activities Continue incentive spirometry, PT/OT when appropriate Post op blood loss anemia H&H - hgb around 11 (pre-op hgb 14.5, EBL 400ml) Post op blood loss + likely dilutional factor. VSS, asymptomatic. Pt w/o s/s of anemia. (2) CKD (chronic kidney disease), stage III: Plan: Cr at baseline (Cr ~1.7-1.8). Avoid nephrotoxic agents when possible including Toradol. (3) Hypertension: Plan: Normotensive, continue amlodipine (4) History of pulmonary embolism: Plan: H/o PE in 2014, completed anticoagulation after 1 year. No recurrent issues since PCP: Carter Dispo: today per primary. Thank you for this consultation. We will follow the patient with you during their hospital stay. You can reach a member of the [facility] Team 29/12 via [email or web address]. Admission and Anticipated Discharge Date Admission Date: May 08, 2022 Subjective Patient seen and examined at bedside as a follow-up of medical consult for status post lumbar spine surgery. Patient was lying in bed, on room air, NAD, reports eating okay and moving bowels okay, reports pain under control, denies other review of symptoms. Physical Exam Physical Exam: GENERAL: Alert and oriented x3. NAD, on RA. HEENT: No pallor, no icterus. Pupils equal, round and reactive to light. Oral mucosa moist. NECK: No JVD, no neck masses. HEART: S1 and S2 heard. Regular rate and rhythm. No murmur, no gallop. RESPIRATORY SYSTEM: Normal AP diameter. No accessory muscle use. No wheezing, no crackles. ABDOMEN: Soft, bowel sounds present, nontender, no distention. CENTRAL NERVOUS SYSTEM: No facial droop. Speech is clear. Obeys simple commands. Moves extremities. EXTREMITIES: No edema, no erythema seen. Low back with clean dressing. Results & Data Results & Data ([facility]) Vital Signs (Past 12 Hours) Vital Signs Temp Pulse Pulse Resp BP BP Pulse Ox 05/12/22 12:11 37.1 C 79 17 108/62 97 05/12/22 06:30 36.9 C 84 18 112/68 97 05/12/22 07:37 36.9 C 71 16 153/82 H 97 O2 Del Method 05/12/22 12:11 Room Air 05/12/22 06:30 Room Air 05/12/22 07:37 Room Air
== END 2022-05-12 14:16 | disposition home health service (06) | DRG 454 ==
LOC: ASU 06:38 → PACUINP 11:14 → 3E 13:48